=== PATIENT | male | born 1970 ===

== ENCOUNTER 2022-11-09 04:07 | Outpatient (CLI) | payer SELFPAY ==
[2022-11-11 09:34] LABS: HBs Antibody, Quant 224.5 mIU/mL (See Note); Hepatitis B Surface Ab Positive (See Note)
[2022-11-11 11:17] LABS: Varicella IgG Antibody Positive (See Note)
[2022-11-11 12:31] LABS: TB Interpretation Negative (Negative)
== END 2022-11-09 04:08 | disposition home or self-care (01) ==
PROVIDERS: Visit Provider Nurse Practitioner Family
DX: Z02.1 Encounter for pre-employment examination (principal); Z11.59 Encounter for screening for other viral diseases; Z11.1 Encounter for screening for respiratory tuberculosis
CPT/HCPCS: 36415; 86706; 86787; 86480